=== PATIENT | female | born 1980 | race African-American/Black ===

== ENCOUNTER 2023-02-28 11:41 | Emergency (ER) | payer MEDICAID ==
[~2023-02-28] VITALS: Ht 157.5 cm; Wt 59.1 kg
[~2023-02-28 11:41] MED LIST: HYDR12.524; OMEP20TA44; PHENERGAN; TRAM-297
[2023-02-28 12:00] LABS: Basophils # (auto) 0 10 ^3/uL (0-0.2); Basophils % (auto) 0.7 % (0.0-2.0); Eosinophils # (auto) 0.1 10 ^3/uL (0-0.8); Eosinophils % (auto) 1.2 % (0.0-7.0); Hematocrit 37.7 % (36.0-46.0); Hemoglobin 12.6 g/dL (12.2-16.2); Lymphocytes # (auto) 1.6 10 ^3/uL (0.4-5.4); Lymphocytes % (auto) 31.6 % (10.0-50.0); Mean Corpuscular Hemoglobin 29.6 pg (28.0-32.0); Mean Corpuscular Hgb Conc. 33.5 g/dL (32.0-36.0); Mean Corpuscular Volume 88.4 fL (80.0-100.0); Monocytes # (auto) 0.5 10 ^3/uL (0-1.3); Monocytes % (auto) 9.3 % (0.0-12.0); Neutrophils # (auto) 2.9 10 ^3/uL (1.6-8.6); Neutrophils % (auto) 57.2 % (37.0-80.0); Nucleated Red Blood Cells % 0.1 %; Red Blood Cells 4.26 10^6/uL (4.0-5.20); Red Cell Distribution Width 15.6 % (11.8-14.3)
[2023-02-28] MEDS ORDERED: ASPirin 325 MG TAB PO ONE (12:00)
[2023-02-28] MEDS ORDERED: ONDANSETRON HCL 4 MG/2 ML VIAL IV ONE ×2 (12:00→16:15)
[2023-02-28] MEDS ORDERED: MORPHINE SULFATE 4 MG/ML SYR/VIAL IV ONE (12:00)
[2023-02-28] MEDS ORDERED: NITROGLYCERIN 0.4 MG SL TAB SL ONE (12:00)
[2023-02-28 12:15] LABS: Alanine Aminotransferase 20 U/L (7-40); Albumin 4.1 g/dL (3.2-4.8); Alkaline Phosphatase 52 U/L (46-116); Anion Gap 5.6 (5-15); Aspartate Aminotransferase 17 U/L (13-40); BUN/Creatinine Ratio 8.4 (10.0-20.0); Blood Urea Nitrogen 8 mg/dL (9-23); Calcium 9.4 mg/dL (8.5-10.1); Carbon Dioxide 27.4 mmol/L (20-30); Chloride 105 mmol/L (98-107); Glucose 106 mg/dL (74-106); Potassium 3.6 mmol/L (3.5-5.1); Sodium 138 mmol/L (136-145)
[2023-02-28 12:16] LABS: Bilirubin, Total 0.4 mg/dL (0.2-1.0); Total Protein 6.8 g/dL (5.7-8.2)
[2023-02-28 12:20] LABS: Urine Bacteria NONE SEEN /hpf (None Seen); Urine Blood Negative /uL (Negative); Urine Clarity Clear (Clear); Urine Protein, UAD Negative (Negative); Urine Specific Gravity 1.005 (1.001-1.035); Urine Urobilinogen Normal (Negative); Urine WBC <1 /hpf (0 - 5); Urine pH 7.5 (5.0-8.0)
[2023-02-28 12:26] LABS: Urine Color Straw (Yellow)
[2023-02-28 12:56] LABS: Amphetamine Screen, Urine Neg (NEGATIVE); Barbiturate Scree,Urine Neg (NEGATIVE); Benzodiazephine Screen, Urine Neg (NEGATIVE); Cannabinoid Screen, Urine Neg (NEGATIVE); Cocaine Screen, Urine Neg (NEGATIVE); Opiate Scree,Urine Neg (NEGATIVE); Phencyclidine Screen, Urine Neg (NEGATIVE)
[2023-02-28 15:39] VITALS: PULSE 79; RESP 14; O2SAT 99
[2023-02-28] MEDS ORDERED: MORPHINE SULFATE INJ 2 MG/ml SYRG IV ONE (16:15)
[2023-02-28] MEDS: LABETALOL HCL 5 MG/ML 4ML SYRINGE IV ONE ×2 (16:54→18:09)
[2023-02-28] MEDS ORDERED: KETOROLAC TROMETH 30 MG/ML 1ML VIAL IV ONE (18:45)
[2023-02-28 19:30] VITALS: BP 128/73; PULSE 62; RESP 13; TEMP 98; O2SAT 96
== END 2023-02-28 20:58 | disposition home or self-care (01) ==
LOC: ER 11:41 → EDBD 11:41 → ER 20:58
DX: R07.9 Chest pain, unspecified (principal); R10.2 Pelvic and perineal pain; I10 Essential (primary) hypertension; R51.9 Headache, unspecified; Z32.02 Encounter for pregnancy test, result negative; Z88.6 Allergy status to analgesic agent; Z79.899 Other long term (current) drug therapy
CPT/HCPCS: 36415; 70450; 71045; 80053; 80307; 81001; 81025; 84443; 84484; 84702; 85025; 85379; 93005; 96374; 96375; 96376; 99285; J2270; J2405; J3490

== ENCOUNTER 2024-09-15 17:14 | Emergency (ER) | payer MEDICAID ==
[~2024-09-15] VITALS: Ht 165.1 cm; Wt 59.0 kg
[2024-09-15 17:37] VITALS: PULSE 125; RESP 20; O2SAT 100
[2024-09-15 17:48] LABS: Basophils # (auto) 0.1 10 ^3/uL (0-0.2); Basophils % (auto) 0.7 % (0.0-2.0); Eosinophils # (auto) 0 10 ^3/uL (0-0.8); Eosinophils % (auto) 0.6 % (0.0-7.0); Hematocrit 40.7 % (36.0-46.0); Hemoglobin 13.8 g/dL (12.2-16.2); Lymphocytes # (auto) 2.8 10 ^3/uL (0.4-5.4); Lymphocytes % (auto) 38.7 % (10.0-50.0); Mean Corpuscular Hemoglobin 31.9 pg (28.0-32.0); Mean Corpuscular Hgb Conc. 33.8 g/dL (32.0-36.0); Mean Corpuscular Volume 94.4 fL (80.0-100.0); Monocytes # (auto) 0.7 10 ^3/uL (0-1.3); Monocytes % (auto) 9.9 % (0.0-12.0); Neutrophils # (auto) 3.6 10 ^3/uL (1.6-8.6); Neutrophils % (auto) 50.1 % (37.0-80.0); Nucleated Red Blood Cells % 0.1 %; Platelet Count (auto) 265 10^3/uL (140-450); Red Blood Cells 4.31 10^6/uL (4.0-5.20); Red Cell Distribution Width 13.3 % (11.8-14.3); White Blood Cell 7.2 10^3/uL (4.4-10.8)
--- NOTE | 2024-09-15 17:56 | DVH ---
EXAM: XY CHEST PORTABLE TECHNIQUE: Single frontal chest radiograph CLINICAL HISTORY: chest pain COMPARISON: XY CHEST PORTABLE on DOS: 02/28/23 Findings/Impression: Frontal chest radiograph demonstrates no acute osseous or superficial soft tissue abnormalities. The trachea is midline. The cardiac silhouette and mediastinum are within normal limits. No pneumothorax, pleural effusions, or consolidations.
[2024-09-15 18:02] LABS: INR 1.03 (0.9-1.15); Partial Thromboplastin Time 26.8 SEC (24.5-34.5); Prothrombin Time 10.9 sec (9.3-11.8)
[2024-09-15 18:07] LABS: Alanine Aminotransferase 21 U/L (7-40); Albumin 4.3 g/dL (3.2-4.8); Alkaline Phosphatase 52 U/L (46-116); Anion Gap 17 (5-15); Aspartate Aminotransferase 16 U/L (13-40); BUN/Creatinine Ratio 6.9 (10.0-20.0); Bilirubin, Total 0.4 mg/dL (0.2-1.0); Calcium 9.8 mg/dL (8.7-10.4); Chloride 102 mmol/L (98-107); Sodium 138 mmol/L (136-145); Total Protein 6.7 g/dL (5.7-8.2)
[2024-09-15] MEDS: LORazepam 2MG/ML-1ML VIAL IV ONE (18:12)
[2024-09-15 18:16] LABS: Blood Urea Nitrogen 7 mg/dL (9-23); Carbon Dioxide 19 mmol/L (20-31); Glucose 107 mg/dL (74-106); Potassium 2.8 mmol/L (3.5-5.1)
--- NOTE | 2024-09-15 18:41 | ECG ---
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
--- NOTE | 2024-09-15 19:07 | ED.PDOC ---
History of Present Illness HPI Comments 43-year-old female complains of left parasternal sharp chest pain for the last 2 days intermittently. Worse with movement. Associated with anxiety Chief Complaint: Chest Pain Time Seen by MD: 17:26 Primary Care Provider: ANTHONY Allergies: Coded Allergies: Ibuprofen (Verified Allergy, Unknown, 02/28/23) Home Meds Reported Medications Tramadol Hcl (Ultram) 50 Mg Tab 10/29/11 Hydrochlorothiazide (Microzide) 12.5 Mg Cap, DAILY 10/29/11 [Phenergan] No Conflict Check, DAILY 08/30/11 Omeprazole ([facility] Omeprazole) 20 Mg Tab, DAILY 08/30/11 Information Source: Patient, Relative Mode of Arrival: EMS Severity: Moderate Timing: Days Duration: Intermittent Past Medical History PAST MEDICAL HISTORY: Anxiety SECURITY COMPLIANCE SPECIALIST History: No Pertinent SECURITY COMPLIANCE SPECIALIST History Family History Family History: Unknown Social History Alcohol: Denies ETOH Use Drugs: Denies Drug Use Lives In: Home Cardiovascular: reports: chest pain, dizzy spells Psychiatric: reports: anxiety All Other Systems: Reviewed and Negative Physical Exam General Appearance: Moderate Distress, Other (very anxious, hyperventilating) HEENT: Normal ENT Inspection, Pharynx Normal, TMs Normal Neck: Full Range of Motion, Non-Tender, Normal, Normal Inspection Respiratory: Chest Non-Tender, Lungs Clear, No Accessory Muscle Use, No Respiratory Distress, Normal Breath Sounds Cardiovascular: Tachycardia Breast Exam: Deferred Gastrointestinal: No Organomegaly, Non Tender, No Pulsatile Mass, Normal Bowel Sounds, Soft Genitalia: Deferred Pelvic: Deferred Rectal: Deferred Extremities: No calf tenderness, Normal capillary refill, Normal inspection, Normal range of motion, Non-tender, No pedal edema Musculoskeletal : Apperance: Normal Neurologic: Alert, box maker paperboard II-XII nml as Tested, No Motor Deficits, Normal Affect, Normal Mood, No Sensory Deficits Cerebellar Function: Normal Reflexes: Normal Skin: Dry, Normal Color, Warm Lymphatic: No Adenopathy Was a procedure done? Was a procedure done?: No Differential Dx Considerations may include: Differential diagnosis includes but not limited to: angina, myocardial infarction, pulmonary embolus, pleurisy, musculoskeletal etiology and others X-Ray, Labs, Meds, VS Vital Signs Date Time Temp Pulse Resp B/P (MAP) Pulse Ox O2 Delivery O2 Flow Rate FiO2 09/15/24 18:45 113 09/15/24 18:40 109 09/15/24 18:04 115 20 134/78 (96) 100 09/15/24 17:37 125 20 100 Room Air* 0 21 09/15/24 17:37 98.9 125 20 144/76 (98) 100 98.9 09/15/24 17:26 98.1 117 25 161/93 (115) 100 98.1 09/15/24 17:19 125 Lab Test 09/15/24 18:19 09/15/24 17:27 Range/Units Troponin I High Sensitivity Pending 5 </=34 ng/L White Blood Count 7.2 4.4-10.8 10^3/uL Red Blood Count 4.31 4.0-5.20 10^6/uL Hemoglobin 13.8 12.2-16.2 g/dL Hematocrit 40.7 36.0-46.0 % Mean Corpuscular Volume 94.4 80.0-100.0 fL Mean Corpuscular Hemoglobin 31.9 28.0-32.0 pg Mean Corpuscular Hemoglobin Concent 33.8 32.0-36.0 g/dL Red Cell Distribution Width 13.3 11.8-14.3 % Platelet Count 265 140-450 10^3/uL Mean Platelet Volume 8.5 6.9-10.8 fL Neutrophils (%) (Auto) 50.1 37.0-80.0 % Lymphocytes (%) (Auto) 38.7 10.0-50.0 % Monocytes (%) (Auto) 9.9 0.0-12.0 % Eosinophils (%) (Auto) 0.6 0.0-7.0 % Basophils (%) (Auto) 0.7 0.0-2.0 % Neutrophils # (Auto) 3.6 1.6-8.6 10 ^3/uL Lymphocytes # (Auto) 2.8 0.4-5.4 10 ^3/uL Monocytes # (Auto) 0.7 0-1.3 10 ^3/uL Eosinophils # (Auto) 0 0-0.8 10 ^3/uL Basophils # (Auto) 0.1 0-0.2 10 ^3/uL Nucleated Red Blood Cells 0.1 % Prothrombin Time 10.9 9.3-11.8 sec Prothrombin Time INR 1.03 0.9-1.15 Activated Partial Thromboplast Time 26.8 24.5-34.5 SEC Sodium Level 138 136-145 mmol/L Potassium Level 2.8 L 3.5-5.1 mmol/L Chloride Level 102 98-107 mmol/L Carbon Dioxide Level 19 L 20-31 mmol/L Anion Gap 17 H 5-15 Blood Urea Nitrogen 7 L 9-23 mg/dL Creatinine 1.02 0.550-1.02 mg/dL Glomerular Filtration Rate Calc 70 >90 mL/min BUN/Creatinine Ratio 6.9 L 10.0-20.0 Serum Glucose 107 H 74-106 mg/dL Calcium Level 9.8 8.7-10.4 mg/dL Total Bilirubin 0.4 0.2-1.0 mg/dL Aspartate Amino Transferase (AST) 16 13-40 U/L Alanine Aminotransferase (ALT) 21 7-40 U/L Alkaline Phosphatase 52 46-116 U/L Total Protein 6.7 5.7-8.2 g/dL Albumin 4.3 3.2-4.8 g/dL Current Medications Medications (Trade) Dose Ordered Sig/Marina Route Start Time Stop Time Status Last Admin Lorazepam (Ativan Inj) 1 mg ONCE ONCE IV 09/15/24 18:00 09/15/24 18:01 DC 09/15/24 18:12 Time of 1ST Reevaluation: 19:05 Reevaluation 1ST: Improved (after ativan) Patient Education/Counseling: Diagnosis, Treatment Family Education/Counseling: Diagnosis, Treatment Departure 1 Departure Time of Disposition: 19:06 Impression: Primary Impression: Chest pain Additional Impression: Hypokalemia Disposition: 01 HOME / SELF CARE / HOMELESS Condition: Stable Discharged With: Self, Relative Critical Care Note Critical Care Time?: No Stability Stability form required: No Heart Score Heart Score: Heart Score Response (Comments) Value History Slightly Suspicious 0 EKG Normal 0 Age <45 0 Risk Factors No known risk factors 0 Troponin Normal limit 0 Total 0 CARLOS BOSCH MD Sep 15, 2024 19:07
[2024-09-15 19:37] VITALS: PULSE 99; RESP 20; TEMP 99; O2SAT 99
[2024-09-15] MEDS ORDERED: POTA-228 PO (20:10)
[2024-09-15] MEDS: POTASSIUM CHL 20 Meq TABLET PO ONE (20:35)
[2024-09-15] MEDS: ONDANSETRON HCL 4 MG/2 ML VIAL IV ONE (20:43)
[2024-09-15] MEDS: MORPHINE SULFATE 4 MG/ML SYR/VIAL IV ONE (20:44)
[2024-09-15 20:52] VITALS: BP 119/71; PULSE 94; RESP 18; O2SAT 100
--- NOTE | 2024-09-16 06:46 | ECG ---
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
--- NOTE | 2024-09-17 07:14 | ECG ---
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
== END 2024-09-15 21:05 | disposition home or self-care (01) ==
LOC: EDBD 17:14 → ER 17:14 → EDUNIT# 17:14 → ER 21:05
DX: R07.89 Other chest pain (principal); E87.6 Hypokalemia; F41.9 Anxiety disorder, unspecified; Z88.6 Allergy status to analgesic agent; Z79.899 Other long term (current) drug therapy
CPT/HCPCS: 36415; 71045; 80053; 84484; 85025; 85610; 85730; 93005; 96374; 96375; 99285; J2060; J2270; J2405